=== PATIENT | male | born 1970 | race Two or more races ===

== ENCOUNTER 2024-10-19 11:42 | Emergency (ER) | payer OTHER, SELFPAY ==
[~2024-10-19] VITALS: Ht 182.9 cm; Wt 82.5 kg
--- NOTE | 2024-10-19 11:58 | ED.PDOC ---
HPI (NEURO) HPI Comments Vitals: Ethel: Santana's plasy HPI: Poor Historian. 53-year-old male otherwise healthy not on any medications presents to emergency department for two day history of left periorbital/jaw numbness sensation. He noticed that when he is drinking that it water is spilling out of the left side of his mouth. Patient denies any other acute symptoms. Denies any viral symptoms recently. Onset of symptoms at least two days ago. Past Medical History: Denies any Past Surgical History: Denies any REVIEW OF SYSTEMS: CONSTITUTIONAL: Denies acute: fever, diaphoresis, chills, generalized weakness. HEAD: Denies acute: headache, photophobia Eyes: Denies acute: Double vision, vision loss, eye pain, eye discharge. EARS: Denies acute: tinnitus, hearing loss, ear discharge, ear pain, THROAT: Denies acute: sore throat, swelling, difficulty swallowing , pain with swallowing, change in voice. NECK: Denies acute: neck pain, neck swelling, stiff neck. HEART: Denies acute : chest pain, palpitations, LUNGS: Denies acute: SOB, wheezing, cough, hemoptysis ABDOMEN: Denies acute: abdominal pain, Nausea, Vomiting, diarrhea, melena , hematemesis, hematochezia SKIN: Denies acute: rash, redness, lesions, itchiness. EXTREMITIES: Denies acute: calf pain, numbness, tingling, weakness, denies pain in extremity. Denies acute: Low back pain. Neuro: Denies acute: t, tremors, seizure like activity, confusion, dizziness, change in mental status, loss of bowel or bladder function, cauda equina like symptoms. : Denies acute: dysuria, hematuria, flank pain, increase in urinary frequency. PSYCH: Denies acute: hallucination, suicidal ideation, homicidal ideation. PHYSICAL EXAM: General: ----mild----acute distress, awake and alert. Head: normocephalic, atraumatic. Neck: supple, trachea is midline, no swelling. Throat: Normal phonation. Eyes:, no erythema, no purulent discharge, no proptosis, no icterus. Heart: regular rate, regular rhythm, no significant murmur appreciated. Lungs: no apparent respiratory distress, Able to speak in full sentences. No wheezing, no rhonchi, no crackles. No stridors Clear to auscultation bilaterally. Abdomen: non tender to palpation, non distended, soft, no guarding, no rebound, + bowel sounds. Neuro: Awake, Alert, oriented to name, self, situation, follows commands GCS=15. Speech is normal. Skin: no petechia, no purpura, no cyanosis, non-pale, not jaundice. Lower extremities: --no - Pitting edema no deformity, no focal swelling, no calf TTP. Makes eye contact. moves all four extremities. Face: When patient's smiles there is left apparent facial droop. Ambulating in the ED independently. Stroke: finger to nose cerebellar testing is intact. No pronator drift. Symmetrical deportation examiner muscle strength b/l PERRLA, EOM-I however patient has sluggish blinking with his left eye. Also when patient is smiles is some asymmetry on the left lips CN 2-12 are grossly intact, No nystagmus. No nuchal rigidity, Kernig's sign, Brudzinski's sign, no meningeal signs. ED COURSE: Chief Complaint: Left Sided Weakness Time Seen by MD: 11:45 Reviewed Notes: Nurses Notes, Medications, Allergies Information Source: Patient Was a procedure done? Was a procedure done?: No Differential Diagnosis (SZ) Seizure: N/A CVA: Santana's Palsy, CVA, Delirium Tremens, DKA, Drug Overdose, Electrolyte Imbalance, Encephalopathy, Hypoglycemia, Hypoxemia, Mass Lesion, Respiratory Failure, SAH, TIA X-Ray, Labs, Meds, VS Vital Signs Date Time Temp Pulse Resp B/P (MAP) Pulse Ox O2 Delivery O2 Flow Rate FiO2 10/19/24 15:40 98.0 60 15 133/69 (90) 98 98.0 10/19/24 13:00 71 20 96 Room Air* 0 21 10/19/24 12:29 97.6 60 20 150/88 (108) 97 97.6 10/19/24 12:29 60 20 10/19/24 11:45 98.2 60 18 152/92 (112) 98 98.2 Lab Test 10/19/24 12:05 Range/Units White Blood Count 5.0 4.4-10.8 10^3/uL Red Blood Count 6.28 H 4.5-5.90 10^6/uL Hemoglobin 17.2 13.5-17.5 g/dL Hematocrit 51.2 41.0-53.0 % Mean Corpuscular Volume 81.4 80.0-100.0 fL Mean Corpuscular Hemoglobin 27.4 L 28.0-32.0 pg Mean Corpuscular Hemoglobin Concent 33.6 32.0-36.0 g/dL Red Cell Distribution Width 13.8 11.8-14.3 % Platelet Count 223 140-450 10^3/uL Mean Platelet Volume 8.2 6.9-10.8 fL Neutrophils (%) (Auto) 59.9 37.0-80.0 % Lymphocytes (%) (Auto) 30.1 10.0-50.0 % Monocytes (%) (Auto) 7.5 0.0-12.0 % Eosinophils (%) (Auto) 2.2 0.0-7.0 % Basophils (%) (Auto) 0.3 0.0-2.0 % Neutrophils # (Auto) 3.0 1.6-8.6 10 ^3/uL Lymphocytes # (Auto) 1.5 0.4-5.4 10 ^3/uL Monocytes # (Auto) 0.4 0-1.3 10 ^3/uL Eosinophils # (Auto) 0.1 0-0.8 10 ^3/uL Basophils # (Auto) 0 0-0.2 10 ^3/uL Nucleated Red Blood Cells 0.3 % Sodium Level 139 136-145 mmol/L Potassium Level 3.9 3.5-5.1 mmol/L Chloride Level 105 98-107 mmol/L Carbon Dioxide Level 27 20-31 mmol/L Anion Gap 7 5-15 Blood Urea Nitrogen 11 9-23 mg/dL Creatinine 0.87 0.700-1.30 mg/dL Glomerular Filtration Rate Calc 104 >90 mL/min BUN/Creatinine Ratio 12.6 10.0-20.0 Serum Glucose 258 H 74-106 mg/dL Calcium Level 9.8 8.7-10.4 mg/dL Magnesium Level 1.8 1.6-2.6 mg/dL Total Bilirubin 1.5 H 0.2-1.0 mg/dL Aspartate Amino Transferase (AST) 9 L 13-40 U/L Alanine Aminotransferase (ALT) 26 7-40 U/L Alkaline Phosphatase 98 46-116 U/L Troponin I High Sensitivity 3 L </=54 ng/L Total Protein 7.5 5.7-8.2 g/dL Albumin 4.7 3.2-4.8 g/dL Current Medications Medications (Trade) Dose Ordered Sig/Елена Route Start Time Stop Time Status Last Admin Prednisone 60 mg ONCE ONCE PO 10/19/24 12:00 10/19/24 12:01 DC 10/19/24 12:20 Acyclovir (Zovirax Tablet) 800 mg ONCE ONCE PO 10/19/24 12:00 10/19/24 12:01 DC 10/19/24 12:22 [place] [address] Ph: [phone] DIAGNOSTIC IMAGING Diagnostic Imaging Report : [id number] Signed PATIENT: ASA MELGAR ACCT: [id number] UNIT: [id number] : 1970 LOC: ER ROOM / BED: / AGE / SEX: 53 / M ADM STATUS: REG ER SERVICE 1153 ORDERING PHYSICIAN: SANDY LOPEZ DO PROCEDURE(s): HWOCT - HEAD WITHOUT CONTRAST REASON: L jaw numbness, possible Santana's palsy ORDER NUMBER(s): [id number], ACCESSION NUMBER(s): [id number] CLINICAL INFORMATION: Left jaw numbness. Possible Santana's palsy. TECHNIQUE: Axial imaging was obtained through the brain without contrast. Coronal and sagittal reformatted images were obtained, reviewed, and stored. Images were reviewed in brain and bone windows. All CT scans at this medical facility are performed using dose modulation techniques as appropriate to a performed exam including the following: Automated exposure control was utilized; adjustment of the MA and/or KV according to patient size; and use of iterative reconstruction technique. CTDIvol = 53.17 mGy DLP = 863.9 mGy-cm COMPARISON: None FINDINGS: There is no acute intracranial hemorrhage. No midline shift. Extra- axial CSF collection along medial aspect of the left middle cranial fossa measuring up to 2.2 x 0.9 cm, with mass effect on the adjacent left temporal lobe, suspected arachnoid cyst Lucency in the left basal ganglia, possible chronic lacunar infarct or prominent perivascular space. The ventricles and sulci are within normal limits in size for age. Basal cisterns are patent. The calvarium is unremarkable. Paranasal sinuses and mastoid air cells are clear. IMPRESSION: 1. No evidence of acute intracranial hemorrhage. 2. Left middle cranial fossa arachnoid cyst. 3. Additional nonacute findings as described above. ATED BY: PRATEEK FARIAS DO DICTATED DATE/TIME: 10/19/244 SIGNED BY: PRATEEK FARIAS DO SIGNED DATE/TIME: 10/19/241223 CC: Time of 1ST Reevaluation: 11:45 Reevaluation 1ST: Unchanged Patient Education/Counseling: Diagnosis, Treatment Family Education/Counseling: No Family Present Comments Patient presented with the above HPI.--neurological deficit----workup was initiated. patient was found with the above mentioned diagnosis. the following medications were ordered: please refer to order lists of meds and tests obtained by myself Dr. Lopez. Patient ED course and VS have been stabilized. Patient has been reassessed in the ED and remained in a stable condition. Pertinent incidental findings were discussed with the patient and/or family. Patient/family voices understanding and is agreeable with plan. Patient has been observed in the ED adequate length of time to insure improvement/stability. Escalation of care considered: Consideration of escalation to observation or admission Patient was DISCHARGED home in a stable condition. All the reports of any imaging studies that were ordered by myself were reviewed by myself. Departure 1 Departure Time of Disposition: 14:09 Impression: Primary Impression: Left-sided Santana's palsy Additional Impressions: Intracranial arachnoid cyst Hyperglycemia Hypertension Disposition: 01 HOME / SELF CARE / HOMELESS Condition: Stable Additional Instructions: Additional instructions: You MUST follow-up with your primary care/family doctor in 1 to 2 days. If you are unable to see your primary care/family doctor, please return to our emergency room for re-assessment and re-evaluation in 1 to 2 days. Return to the emergency room here in our facility or to the nearest ER [facility] if your symptoms change or worsen. CONSULTATIONS: you MUST Follow-up for consultation as soon as possible with: -neurology in 1-2 days. Please call for appointment. You MUST call the consultants office yourself to make an appointment. You may need to arrange that through your insurance and/or your primary/family doctor. If you are unable to see the quantitative consultant in 1 to 2 days, you must return to our emergency room (or any other ER of your choice) for re-assessment and re- evaluation. Adequate fluid hydration. Monitor blood sugar at home at least 3 times a day. Follow diabetic diet. Monitor blood pressure at home at least 3 times a day. By a hard eye patch and where it at all times to protect your eyes. Apply ohuz-jso-covfcto artificial tears to affected eye every 20 minutes while awake. Below is a copy of your radiological report for follow up: [place] [address] Ph: [phone] DIAGNOSTIC IMAGING Diagnostic Imaging Report : [id number] Signed PATIENT: ASA MELGAR ACCT: [id number] UNIT: [id number] : 1970 LOC: ER ROOM / BED: / AGE / SEX: 53 / M ADM STATUS: REG ER SERVICE 1153 ORDERING PHYSICIAN: SANDY LOPEZ DO PROCEDURE(s): HWOCT - HEAD WITHOUT CONTRAST REASON: L jaw numbness, possible Santana's palsy ORDER NUMBER(s): [id number], ACCESSION NUMBER(s): [id number] CLINICAL INFORMATION: Left jaw numbness. Possible Santana's palsy. TECHNIQUE: Axial imaging was obtained through the brain without contrast. Coronal and sagittal reformatted images were obtained, reviewed, and stored. Images were reviewed in brain and bone windows. All CT scans at this medical facility are performed using dose modulation techniques as appropriate to a performed exam including the following: Automated exposure control was utilized; adjustment of the MA and/or KV according to patient size; and use of iterative reconstruction technique. CTDIvol = 53.17 mGy DLP = 863.9 mGy-cm COMPARISON: None FINDINGS: There is no acute intracranial hemorrhage. No midline shift. Extra- axial CSF collection along medial aspect of the left middle cranial fossa measuring up to 2.2 x 0.9 cm, with mass effect on the adjacent left temporal lobe, suspected arachnoid cyst Lucency in the left basal ganglia, possible chronic lacunar infarct or prominent perivascular space. The ventricles and sulci are within normal limits in size for age. Basal cisterns are patent. The calvarium is unremarkable. Paranasal sinuses and mastoid air cells are clear. IMPRESSION: 1. No evidence of acute intracranial hemorrhage. 2. Left middle cranial fossa arachnoid cyst. 3. Additional nonacute findings as described above. ATED BY: PRATEEK FARIAS DO DICTATED DATE/TIME: 10/19/24 1224 SIGNED BY: PRATEEK FARIAS DO SIGNED DATE/TIME: 10/19/24 1224 CC: e-Prescriptions Prednisone (Prednisone) 20 Mg Tab 40 MG PO DAILY for 7 Days, #14 TAB Prov: SANDY LOPEZ DO 10/19/24 Valacyclovir HCl (Valacyclovir HCl) 1 Gm Tab 1 GM PO Q8HR for 10 Days, #30 TAB Prov: SANDY LOPEZ DO 10/19/24 Discharged With: Self, Spouse Critical Care Note Critical Care Time?: No I personally scribed for SANDY LOPEZ DO ([email or web address]) on 10/19/24 at 11:58. Electronically submitted by Fahad Domingo ([email or web address]). I personally scribed for SANDY LOPEZ DO ([email or web address]) on 10/19/24 at 14:12. Electronically submitted by Fahad Domingo ([email or web address]). I personally scribed for SANDY LOPEZ DO ([email or web address]) on 10/19/24 at 14:18. Electronically submitted by Fahad Domingo ([email or web address]). I personally scribed for SANDY LOPEZ DO ([email or web address]) on 10/19/24 at 14:53. Electronically submitted by Fahad Domingo ([email or web address]). SANDY LOPEZ DO Oct 19, 2024 11:58
[2024-10-19] MEDS: predniSONE 20 MG TAB PO ONE (12:20)
[2024-10-19] MEDS: ACYCLOVIR 400 MG TAB PO ONE (12:22)
--- NOTE | 2024-10-19 12:27 | DVH ---
CLINICAL INFORMATION: Left jaw numbness. Possible Santana's palsy. TECHNIQUE: Axial imaging was obtained through the brain without contrast. Coronal and sagittal reform atted images were obtained, reviewed, and stored. Images were reviewed in brain and bone windows. Al l CT scans at this medical facility are performed using dose modulation techniques as appropriate to a performed exam including the following: Automated exposure control was utilized; adjustment of the MA and/or KV according to patient size; and use of iterative reconstruction technique. CTDIvol = 53.1 7 mGy DLP = 863.9 mGy-cm COMPARISON: None FINDINGS: There is no acute intracranial hemorrhage. No midline shift. Extra-axial CSF collection al carol medial aspect of the left middle cranial fossa measuring up to 2.2 x 0.9 cm, with mass effect on the adjacent left temporal lobe, suspected arachnoid cyst Lucency in the left basal ganglia, possible chronic lacunar infarct or prominent perivascular space. The ventricles and sulci are within normal limits in size for age. Basal cisterns are patent. The calvarium is unremarkable. Paranasal sinuses and mastoid air cells are clear. IMPRESSION: 1. No evidence of acute intracranial hemorrhage. 2. Left middle cranial fossa arachnoid cyst. 3. Additional nonacute findings as described above.
[2024-10-19] MEDS ORDERED: predniSONE 20 MG TAB PO ONE (12:30)
[2024-10-19 12:38] LABS: Basophils # (auto) 0 10 ^3/uL (0-0.2); Basophils % (auto) 0.3 % (0.0-2.0); Eosinophils # (auto) 0.1 10 ^3/uL (0-0.8); Eosinophils % (auto) 2.2 % (0.0-7.0); Hematocrit 51.2 % (41.0-53.0); Hemoglobin 17.2 g/dL (13.5-17.5); Lymphocytes # (auto) 1.5 10 ^3/uL (0.4-5.4); Lymphocytes % (auto) 30.1 % (10.0-50.0); Mean Corpuscular Hemoglobin 27.4 pg (28.0-32.0); Mean Corpuscular Hgb Conc. 33.6 g/dL (32.0-36.0); Mean Corpuscular Volume 81.4 fL (80.0-100.0); Monocytes # (auto) 0.4 10 ^3/uL (0-1.3); Monocytes % (auto) 7.5 % (0.0-12.0); Neutrophils % (auto) 59.9 % (37.0-80.0); Nucleated Red Blood Cells % 0.3 %; Platelet Count (auto) 223 10^3/uL (140-450); Red Blood Cells 6.28 10^6/uL (4.5-5.90); Red Cell Distribution Width 13.8 % (11.8-14.3)
[2024-10-19 13:00] VITALS: PULSE 71; RESP 20; O2SAT 96
[2024-10-19 13:00] LABS: Alanine Aminotransferase 26 U/L (7-40); Albumin 4.7 g/dL (3.2-4.8); Alkaline Phosphatase 98 U/L (46-116); Anion Gap 7 (5-15); BUN/Creatinine Ratio 12.6 (10.0-20.0); Blood Urea Nitrogen 11 mg/dL (9-23); Calcium 9.8 mg/dL (8.7-10.4); Carbon Dioxide 27 mmol/L (20-31); Chloride 105 mmol/L (98-107); Magnesium 1.8 mg/dL (1.6-2.6); Potassium 3.9 mmol/L (3.5-5.1); Sodium 139 mmol/L (136-145); Total Protein 7.5 g/dL (5.7-8.2)
[2024-10-19 13:02] LABS: Aspartate Aminotransferase 9 U/L (13-40); Bilirubin, Total 1.5 mg/dL (0.2-1.0); Glucose 258 mg/dL (74-106)
[2024-10-19] MEDS ORDERED: PRED20TA2 PO (15:06)
[2024-10-19] MEDS ORDERED: VALA1TAB34 PO (15:06)
[2024-10-19 15:40] VITALS: BP 133/69; PULSE 60; RESP 15; TEMP 98; O2SAT 98
== END 2024-10-19 15:55 | disposition home or self-care (01) ==
LOC: ER 11:51
DX: G51.0 Bell's palsy (principal); G93.0 Cerebral cysts; I10 Essential (primary) hypertension; E11.65 Type 2 diabetes mellitus with hyperglycemia
CPT/HCPCS: 36415; 70450; 80053; 83735; 84484; 85025; 99284; J7512